=== PATIENT | female | born 1995 | race American Indian/Alaskan Native ===

== ENCOUNTER 2020-03-12 23:03 | Emergency (ER) | payer OTHER ==
[2020-03-12 23:26] VITALS: BP 145/63
[2020-03-13] MEDS ORDERED: ACETAMINOPHEN 500 MG TAB PO ONE (00:32)
--- NOTE | 2020-03-13 01:30 | Ultrasound Report ---
US OB <= 14 weeks fetus INDICATION / CLINICAL INFORMATION: PAIN, BLEEDING. TECHNIQUE: Transabdominal. Patient refused transvaginal examination. COMPARISON: None available. FINDINGS: UTERUS: Appears within normal limits. Endometrial stripe is slightly thickened measuring 2 cm. GESTATIONAL SAC: No gestational sac is visualized. ADNEXA: The ovaries appear within normal limits. No significant abnormality. FREE FLUID: None. ADDITIONAL FINDINGS: None. IMPRESSION: 1. No gestational sac is visualized which would be consistent with miscarriage if provided clinical a ge is correct. No hCG was performed. Correlate clinically. Signer Name: Kodak Cervantes MD Signed: 03/13/2020 1:26 AM Workstation Name: [id number]
--- NOTE | 2020-03-13 01:47 | Emergency Department Report ---
ED HPI - General Chief complaint: Vaginal Bleeding Stated complaint: /BLEEDING Time Seen by Provider: 03/13/20 00:44 Source: patient Mode of arrival: Ambulatory Limitations: No Limitations - History of Present Illness Initial comments: Patient is a 24-year-old F Citizen Of The [place] female who is approximately 9 weeks who is presenting with 4 days of progressively worsening vaginal bleeding. Patient had started using pads today. She has some small clots passed. Patient with some mild crampiness in the suprapubic region. Patient took a test last month which was positive. Last menstrual period was 01/01/2009 20. She denies fevers chills cough cold congestion nausea vomiting. Pain is a 5 out of 10 in severity. - Related Data Allergies Allergy/AdvReac Type Severity Reaction Status Date / Time No Known Allergies Allergy Verified 03/12/20 23:25 ED Review of Systems ROS: Stated complaint: /BLEEDING Other details as noted in HPI Comment: All other systems reviewed and negative ED Past Medical Hx - Past Medical History Previous Medical History?: No - Surgical History Past Surgical History?: No - Social History Smoking Status: Never Smoker Substance Use Type: None ED Physical Exam - General Limitations: No Limitations General appearance: alert, in no apparent distress - Head Head exam: Present: atraumatic, normocephalic - Eye Eye exam: Present: normal appearance - ENT ENT exam: Present: mucous membranes moist - Neck Neck exam: Present: normal inspection - Respiratory Respiratory exam: Present: normal lung sounds bilaterally. Absent: respiratory distress - Cardiovascular Cardiovascular Exam: Present: regular rate, normal rhythm. Absent: systolic murmur, diastolic murmur, rubs, gallop - GI/Abdominal GI/Abdominal exam: Present: soft, normal bowel sounds - Extremities Exam Extremities exam: Present: normal inspection - Back Exam Back exam: Present: normal inspection - Neurological Exam Neurological exam: Present: alert, oriented X3 - Psychiatric Psychiatric exam: Present: normal affect, normal mood - Skin Skin exam: Present: warm, dry, intact, normal color. Absent: rash ED Course Vital Signs 03/12/20 23:23 Temperature 98.2 F Pulse Rate 95 H Respiratory 18 Rate Blood Pressure 145/63 O2 Sat by Pulse 99 Oximetry ED Medical Decision Making - Lab Data Result diagrams: 03/13/20 01:28 03/13/20 01:28 Lab Results 03/13/20 03/13/2003/13/21 Range/Units 01:28 01:28 01:28 WBC 14.1 H (4.5-11.0) K/mm3 RBC 4.00 (3.65-5.03) M/mm3 Hgb 11.3 (10.1-14.3) gm/dl Hct 33.4 (30.3-42.9) % MCV 84 (79-97) fl MCH 28 (28-32) pg MCHC 34 (30-34) % RDW 13.9 (13.2-15.2) % Plt Count 226 (140-440) K/mm3 Lymph % (Auto) 18.8 (13.4-35.0) % [place] % (Auto) 4.9 (0.0-7.3) % Eos % (Auto) 0.9 (0.0-4.3) % Baso % (Auto) 0.6 (0.0-1.8) % Lymph # (Auto) 2.6 (1.2-5.4) K/mm3 [place] # (Auto) 0.7 (0.0-0.8) K/mm3 Eos # (Auto) 0.1 (0.0-0.4) K/mm3 Baso # (Auto) 0.1 (0.0-0.1) K/mm3 Seg Neutrophils % 74.8 H (40.0-70.0) % Seg Neutrophils # 10.6 H (1.8-7.7) K/mm3 Sodium 139 (137-145) mmol/L Potassium 3.9 (3.6-5.0) mmol/L Chloride 100.4 (98-107) mmol/L Carbon Dioxide 24 (22-30) mmol/L Anion Gap 19 mmol/L BUN 8 (7-17) mg/dL Creatinine 0.7 (0.6-1.2) mg/dL Estimated GFR > 60 ml/min BUN/Creatinine Ratio 11 % Glucose 99 (65-100) mg/dL Calcium 9.7 (8.4-10.2) mg/dL Total Bilirubin 0.30 (0.1-1.2) mg/dL AST 14 (5-40) units/L ALT 10 (7-56) units/L Alkaline Phosphatase 48 (35-129) units/L Total Protein 7.8 (6.3-8.2) g/dL Albumin 4.0 (3.9-5) g/dL Albumin/Globulin Ratio 1.1 % HCG, Quant 4353 H (0-4) mIU/mL Blood Type 03/13/20 Range/Units 01:28 WBC (4.5-11.0) K/mm3 RBC (3.65-5.03) M/mm3 Hgb (10.1-14.3) gm/dl Hct (30.3-42.9) % MCV (79-97) fl MCH (28-32) pg MCHC (30-34) % RDW (13.2-15.2) % Plt Count (140-440) K/mm3 Lymph % (Auto) (13.4-35.0) % [place] % (Auto) (0.0-7.3) % Eos % (Auto) (0.0-4.3) % Baso % (Auto) (0.0-1.8) % Lymph # (Auto) (1.2-5.4) K/mm3 [place] # (Auto) (0.0-0.8) K/mm3 Eos # (Auto) (0.0-0.4) K/mm3 Baso # (Auto) (0.0-0.1) K/mm3 Seg Neutrophils % (40.0-70.0) % Seg Neutrophils # (1.8-7.7) K/mm3 Sodium (137-145) mmol/L Potassium (3.6-5.0) mmol/L Chloride (98-107) mmol/L Carbon Dioxide (22-30) mmol/L Anion Gap mmol/L BUN (7-17) mg/dL Creatinine (0.6-1.2) mg/dL Estimated GFR ml/min BUN/Creatinine Ratio % Glucose (65-100) mg/dL Calcium (8.4-10.2) mg/dL Total Bilirubin (0.1-1.2) mg/dL AST (5-40) units/L ALT (7-56) units/L Alkaline Phosphatase (35-129) units/L Total Protein (6.3-8.2) g/dL Albumin (3.9-5) g/dL Albumin/Globulin Ratio % HCG, Quant (0-4) mIU/mL Blood Type A POSITIVE - Radiology Data Ordering Physician: GINA MEJIAS Date of Service: 03/13/20 Procedure(s): US OB <= 14 weeks fetus Accession Number(s): [id number] cc: GINA MEJIAS US OB <= 14 weeks fetus INDICATION / CLINICAL INFORMATION: PAIN, BLEEDING. TECHNIQUE: Transabdominal. Patient refused transvaginal examination. COMPARISON: None available. FINDINGS: UTERUS: Appears within normal limits. Endometrial stripe is slightly thickened measuring 2 cm. GESTATIONAL SAC: No gestational sac is visualized. ADNEXA: The ovaries appear within normal limits. No significant abnormality. FREE FLUID: None. ADDITIONAL FINDINGS: None. IMPRESSION: 1. No gestational sac is visualized which would be consistent with miscarriage if provided clinical age is correct. No hCG was performed. Correlate clinically. Signer Name: Kodak Cervantes MD Signed: 03/13/2020 1:26 AM Workstation Name: [id number] - Medical Decision Making Patient is a 24-year-old F Citizen Of [place] female who is presenting with vaginal bleeding. Patient is approximately 9 weeks per dates. Beta quant was in the 4000 range and there was no IUP found on ultrasound. Is possible that the patient is off on her dates but at this time miscarriage and ectopic cannot be completely ruled out. Patient need to return in 2 to 3 days for repeat beta quant. If the quant is rising and there is still no IUP found is co ncerning for ectopic . With the quant dropping is confirms that the patient miscarried. Critical care attestation.: If time is entered above; I have spent that time in minutes in the direct care of this critically ill patient, excluding procedure time. ED Disposition Clinical Impression: First trimester bleeding Disposition: DC-01 TO HOME OR SELFCARE Is pt being admited?: No Does the pt Need Aspirin: No Condition: Stable Instructions: Vaginal Bleeding During , First Trimester, [id number] Additional Instructions: Your beta quant was 4300 today. Please return in 2 to 3 days for repeat beta quant. If your test is decreasing in that timeframe he confirms that you have miscarried. Elevation of this number without confirmation of IUP at that time would be significant for possible ectopic . Referrals: PRIMARY CARE, [Primary Care Provider] - 3-5 Days Time of Disposition: 03:05
[2020-03-13 01:50] LABS: Basophils # (Auto) 0.1 K/mm3 (0.0-0.1); Basophils % (Auto) 0.6 % (0.0-1.8); Eosinophils # (Auto) 0.1 K/mm3 (0.0-0.4); Eosinophils % (Auto) 0.9 % (0.0-4.3); Hematocrit 33.4 % (30.3-42.9); Hemoglobin 11.3 gm/dl (10.1-14.3); Lymphocytes # (Auto) 2.6 K/mm3 (1.2-5.4); Lymphocytes % (Auto) 18.8 % (13.4-35.0); Mean Corpuscular HGB Conc 34 % (30-34); Mean Corpuscular Volume 84 fl (79-97); Monocytes # (Auto) 0.7 K/mm3 (0.0-0.8); Monocytes % (Auto) 4.9 % (0.0-7.3); Platelet Count 226 K/mm3 (140-440); Red Cell Distribution Width 13.9 % (13.2-15.2)
[2020-03-13 02:40] LABS: Alanine Aminotransferase 10 units/L (7-56); Blood Urea Nitrogen 8 mg/dL (7-17); Calcium 9.7 mg/dL (8.4-10.2); Hemolysis Index 2
[2020-03-13 02:41] LABS: BUN/Creatinine Ratio 11
[2020-03-13 03:09] LABS: Bacteria,Urine 2+ /HPF (Negative); Bilirubin,Urine NEG (Negative); Blood,Urine LG (Negative); Color,Urine Yellow (Yellow); Protein,Urine <15 mg/dL mg/dL (Negative); Urobilinogen,Urine < 2.0 mg/dL (<2.0)
== END 2020-03-13 03:10 | disposition home or self-care (01) ==
LOC: ED 23:03
DX: O20.8 Other hemorrhage in early pregnancy (principal); O26.891 Other specified pregnancy related conditions, first trimester; R10.2 Pelvic and perineal pain; Z3A.09 9 weeks gestation of pregnancy
CPT/HCPCS: 36415; 76801; 80053; 81001; 84702; 85025; 86900; 86901; 87086

== ENCOUNTER 2020-04-19 13:20 | Emergency (ER) | payer OTHER ==
--- NOTE | 2020-04-19 14:12 | Emergency Department Report ---
ED General Adult HPI - General Stated complaint: STD CHECKUP PUI?: No Time Seen by Provider: 04/19/20 14:05 - History of Present Illness Initial comments: Is a pleasant 24-year-old female presents the emergency department chief co mplaint of hematuria and a possible STD exposure. Patient reports has been having occasional lower abdominal pain, she denies any associated fever, chills or night sweats, headache, dizziness, blurry vision, nausea,, diarrhea, chest pain, shortness of breath or any other associated symptoms. She denies any past medical history, current medication use or known allergies to medications. - Related Data Allergies Allergy/AdvReac Type Severity Reaction Status Date / Time No Known Allergies Allergy Verified 03/12/20 23:25 ED Review of Systems ROS: Stated complaint: STD CHECKUP Other details as noted in HPI Comment: All other systems reviewed and negative Constitutional: denies: chills, fever Eyes: denies: eye pain, eye discharge, vision change ENT: denies: ear pain, throat pain Respiratory: denies: cough, shortness of breath, wheezing Cardiovascular: denies: chest pain, palpitations Endocrine: no symptoms reported Gastrointestinal: abdominal pain. denies: nausea, diarrhea Genitourinary: hematuria. denies: urgency, dysuria, discharge Musculoskeletal: denies: back pain, joint swelling, arthralgia Skin: denies: rash, lesions Neurological: denies: headache, weakness, paresthesias Psychiatric: denies: anxiety, depression Hematological/Lymphatic: denies: easy bleeding, easy bruising ED Past Medical Hx - Social History Smoking Status: Never Smoker Substance Use Type: None ED Physical Exam - General General appearance: alert, in no apparent distress - Head Head exam: Present: atraumatic, normocephalic - Eye Eye exam: Present: normal appearance, PERRL, EOMI Pupils: Present: normal accommodation - ENT ENT exam: Present: normal exam, normal orophraynx, mucous membranes moist - Neck Neck exam: Present: normal inspection, full ROM. Absent: tenderness, meningismus - Respiratory Respiratory exam: Present: normal lung sounds bilaterally. Absent: respiratory distress, wheezes, rales, rhonchi, stridor - Cardiovascular Cardiovascular Exam: Present: regular rate, normal rhythm, normal heart sounds. Absent: systolic murmur, diastolic murmur, rubs, gallop - GI/Abdominal GI/Abdominal exam: Present: soft, normal bowel sounds. Absent: distended, tenderness, guarding, rebound, rigid - Extremities Exam Extremities exam: Present: normal inspection, full ROM, normal capillary refill. Absent: tenderness - Back Exam Back exam: Present: normal inspection, full ROM. Absent: tenderness, CVA tenderness (R), CVA tenderness (L) - Neurological Exam Neurological exam: Present: alert, oriented X3, normal gait - Psychiatric Psychiatric exam: Present: normal affect, normal mood - Skin Skin exam: Present: warm, dry, intact, normal color. Absent: rash ED Course Vital Signs 04/19/20 14:28 Temperature 98.7 F Pulse Rate 83 Respiratory 18 Rate Blood Pressure 140/84 O2 Sat by Pulse 100 Oximetry ED Medical Decision Making - Medical Decision Making Patient nontoxic in no acute distress. He was educated that she need to follow- up the health department for proper STD work-up including checking for gonorrhea, chlamydia, trichomonas, hepatitis, herpes simplex, HIV, syphilis and any other possible exposures to STDs. She understood these instructions. I will treat her with Rocephin and azithromycin in the emergency department per the CDC guidelines for possible exposure to gonorrhea chlamydia. She did see her primary care doctor today and they did reportedly test her for STDs. She still persistently wanted to be treated for gonorrhea chlamydia. Recommended she wait 1 week prior to sexual intercourse and any other partners to be treated. She verbalized understand the diagnosis, treatment and follow-up instructions all her questions were answered. - Differential Diagnosis STD, UTI, vaginitis Critical care attestation.: If time is entered above; I have spent that time in minutes in the direct care of this critically ill patient, excluding procedure time. ED Disposition Clinical Impression: Exposure to STD Disposition: DC-01 TO HOME OR SELFCARE Is pt being admited?: No Condition: Stable Instructions: Safe Sex Referrals: PRIMARY CARE, [Referring] - 3-5 Days Time of Disposition: 16:24
[2020-04-19 14:31] VITALS: BP 140/84
[2020-04-19 15:44] LABS: Bilirubin,Urine NEG (Negative); Blood,Urine LG (Negative); Color,Urine Yellow (Yellow); Urobilinogen,Urine < 2.0 mg/dL (<2.0)
[2020-04-19 15:49] LABS: HCG Qualitative,Urine Negative (Negative)
[2020-04-19] MEDS ORDERED: AZITHROMYCIN 250 MG TAB PO ONE (16:24)
[2020-04-19] MEDS ORDERED: LIDOCAINE-MPF (1%) 10 MG/1 ML VIAL 5 ML INFILTRATI ONE (16:24)
== END 2020-04-19 16:56 | disposition home or self-care (01) ==
LOC: ED 13:20
DX: R31.9 Hematuria, unspecified (principal); R10.30 Lower abdominal pain, unspecified; Z20.828 Contact with and (suspected) exposure to other viral communicable diseases
CPT/HCPCS: 81001; 81025; 87086; 96372; 99283; J0696

== ENCOUNTER 2020-12-02 19:31 | Emergency (ER) | payer OTHER ==
[2020-12-02] MEDS ORDERED: ACETAMINOPHEN 500 MG TAB PO ONE (21:06)
[2020-12-02 21:16] LABS: Basophils % (Auto) 0.1 % (0.0-1.8); Eosinophils % (Auto) 0.1 % (0.0-4.3); Hematocrit 35.5 % (30.3-42.9); Hemoglobin 12.1 gm/dl (10.1-14.3); Lymphocytes # (Auto) 1.9 K/mm3 (1.2-5.4); Lymphocytes % (Auto) 11.7 % (13.4-35.0); Mean Corpuscular HGB Conc 34 % (30-34); Mean Corpuscular Volume 84 fl (79-97); Monocytes # (Auto) 0.8 K/mm3 (0.0-0.8); Monocytes % (Auto) 4.7 % (0.0-7.3); Platelet Count 223 K/mm3 (140-440); Red Blood Count 4.23 M/mm3 (3.65-5.03); Red Cell Distribution Width 14.3 % (13.2-15.2)
--- NOTE | 2020-12-02 21:16 | Emergency Department Report ---
ED Female HPI - General Chief complaint: Vaginal Bleeding Stated complaint: 3 MONTHS BLEEDING Source: patient Mode of arrival: Ambulatory Limitations: No Limitations - History of Present Illness Initial comments: Patient is a A2 25-year-old -[place] female who is approximately 12 weeks gestation and who presents to the ED with complaint of acute onset pe rsistent intermittent suprapubic pain with vaginal spotting for the last 12 hours. Patient states that her job entails being on her feet extensively for the rest of the shift and she noticed her pain getting worse 6 hours prior to the end of her shift and when she went to the bathroom she also noticed that she had vaginal spotting. Patient denies nausea, vomiting, dysuria, urinary frequency and urgency, vaginal discharge, dyspareunia, low back pain, fever and chills, shortness of breath, cough or sore throat and diarrhea. MD Complaint: vaginal bleeding, pelvic pain -: Sudden, hour(s) (12) Location: suprapubic, other (vaginal) Radiation: non-radiating Severity: moderate Severity scale (0 -10): 4 Quality: cramping, aching Consistency: constant Improves with: none Worsens with: movement Are you Now?: Yes (Approximately 12 weeks gestation) Associated Symptoms: denies other symptoms, vaginal bleeding, abdominal pain (Suprapubic). denies: vaginal discharge, nausea/vomiting, fever/chills, headaches, loss of appetite, hematuria, rash, seizure, shortness of breath, syncope - Related Data Sexually active: Yes : 2 Para: 0 A: 2 Previous Rx's Medication Instructions Recorded Last Taken Type Acetaminophen [Tylenol] 500 mg PO Q6HR PRN #30 tablet 12/03/20 Unknown Rx cephALEXin [Keflex] 500 mg PO Q8HR #30 cap 12/03/20 Unknown Rx Allergies Allergy/AdvReac Type Severity Reaction Status Date / Time No Known Allergies Allergy Verified 03/12/20 23:25 ED Review of Systems ROS: Stated complaint: 3 MONTHS BLEEDING Other details as noted in HPI Constitutional: denies: chills, fever Eyes: denies: eye pain, eye discharge, vision change ENT: denies: ear pain, throat pain Respiratory: denies: cough, shortness of breath, wheezing Cardiovascular: denies: chest pain, palpitations Endocrine: no symptoms reported Gastrointestinal: abdominal pain (Suprapubic). denies: nausea, vomiting, diarrhea, hematochezia Genitourinary: abnormal menses (Vaginal spotting). denies: urgency, dysuria, discharge Musculoskeletal: denies: back pain, joint swelling, arthralgia Skin: denies: rash, lesions Neurological: denies: headache, weakness, paresthesias Psychiatric: denies: anxiety, depression Hematological/Lymphatic: denies: easy bleeding, easy bruising ED Past Medical Hx - Social History Smoking Status: Never Smoker Substance Use Type: None - Medications Home Medications: Home Medications Medication Instructions Recorded Confirmed Last Taken Type Acetaminophen [Tylenol] 500 mg PO Q6HR PRN #30 tablet 12/03/20 Unknown Rx cephALEXin [Keflex] 500 mg PO Q8HR #30 cap 12/03/20 Unknown Rx ED Physical Exam - General Limitations: No Limitations General appearance: alert, in no apparent distress - Head Head exam: Present: atraumatic, normocephalic, normal inspection - Eye Eye exam: Present: normal appearance, PERRL, EOMI Pupils: Present: normal accommodation - ENT ENT exam: Present: normal exam, normal orophraynx, mucous membranes moist, TM's normal bilaterally, normal external ear exam - Neck Neck exam: Present: normal inspection, full ROM - Respiratory Respiratory exam: Present: normal lung sounds bilaterally. Absent: respiratory distress, wheezes, rales, rhonchi, chest wall tenderness, accessory muscle use, decreased breath sounds, prolonged expiratory - Cardiovascular Cardiovascular Exam: Present: regular rate, normal rhythm, normal heart sounds. Absent: systolic murmur, diastolic murmur, rubs, gallop - GI/Abdominal GI/Abdominal exam: Present: soft, tenderness (Palpable mild suprapubic tenderness), normal bowel sounds. Absent: guarding, rebound, hyperactive bowel sounds, hypoactive bowel sounds, organomegaly, bruit - Extremities Exam Extremities exam: Present: normal inspection, full ROM, normal capillary refill - Back Exam Back exam: Present: normal inspection, full ROM. Absent: tenderness, CVA tenderness (R), muscle spasm, paraspinal tenderness, vertebral tenderness - Neurological Exam Neurological exam: Present: alert, oriented X3, CN II-XII intact, normal gait, reflexes normal - Psychiatric Psychiatric exam: Present: normal affect, normal mood - Skin Skin exam: Present: warm, dry, intact, normal color. Absent: rash ED Course Vital Signs 12/02/20 20:03 Temperature 99.4 F Pulse Rate 84 Respiratory 16 Rate Blood Pressure 121/71 [Left] O2 Sat by Pulse 100 Oximetry ED Medical Decision Making - Lab Data Result diagrams: 12/02/20 20:27 12/02/20 20:27 - Radiology Data Radiology results: report reviewed, image reviewed [facility], [place] [address] [place] [address] Ultrasound Report Signed Patient: MYRON PHIPPS MR#: [id number] : 1995 Acct:[id number] Age/Sex: 25 / F ADM Date: 12/02/20 Loc: ED Attending Dr: Ordering Physician: GINA MEJIAS Date of Service: 12/02/20 Procedure(s): US OB transvaginal Accession Number(s): [id number] cc: GINA MEJIAS EARLY OBSTETRICAL ULTRASOUND INDICATION: Vaginal bleeding, 12 weeks gestation COMPARISON: None pertinent available TECHNIQUE: Transabdominal and endovaginal FINDINGS: Uterus measures 14.3 cm in length. Early twin intrauterine is seen with cardiac activity documented at 170 bpm and 171 bpm. Fetus A estimated gestational age by crown-rump length is 12 weeks 6 days and fetus B estimated gestational age by crown-rump length is 13 weeks 2 days. No obvious abnormalities are seen. Left ovary is not visualized. Right ovary measures 3.4 cm in length and shows no abnormalities. No free fluid is seen. IMPRESSION: Normal-appearing early twin intrauterine Signer Name: Jonnie Bronson MD Signed: 12/02/2020 10:45 PM Workstation Name: [id number] Transcribed By: SOTERO Dictated By: Jonnie Bronson MD Electronically Authenticated By: Jonnie Bronson MD Signed Date/Time: 12/02/202244 DD/ 38 TD/TT: - Medical Decision Making This is a A2 25-year-old -[place] female who is approximately 12 weeks gestation and who presents to the ED with complaint of acute onset persistent intermittent suprapubic pain with vaginal spotting for the last 12 hours. Patient states that her job entails being on her feet extensively for the rest of the shift and she noticed her pain getting worse 6 hours prior to the end of her shift and when she went to the bathroom she also noticed that she had vaginal spotting. In the ED, patient is alert and oriented x3 and is not in any distress. Patient is hemodynamically stable. Patient was treated for pain with Tylenol 1 g p.o. x1. Lab test results were reviewed and showed acute leukocytosis of 15,800 and hCG quant of 62,398 and urinalysis showed significant urinary tract infection. Patient was also treated in the ED with initial oral antibiotics Keflex 1 g p.o. x1. Pelvic and transvaginal ultrasound showed early twin intrauterine is seen with cardiac activity documented at 170 bpm and 171 bpm. Fetus A estimated gestational age by crown-rump length is 12 weeks 6 days and fetus B estimated gestational age by crown-rump length is 13 weeks 2 days. No obvious abnormalities are seen. On reevaluation, patient's pain is well controlled medications. Patient will discharge home on prescription of oral antibiotics and advised to take Tylenol as needed for pain and to follow-up with her [employer] [employer] physician as previously scheduled in 5 to 7 days for reevalua tion. Patient was advised return to the ED immediately if symptoms get worse. - Differential Diagnosis Threatened miscarriage; UTI; ovarian cyst; subchorionic bleed; Critical care attestation.: If time is entered above; I have spent that time in minutes in the direct care of this critically ill patient, excluding procedure time. ED Disposition Clinical Impression: Threatened miscarriage, Vaginal bleeding in patient after first trimester, Abdominal pain during in first trimester, Acute urinary tract infection Disposition: 01 HOME / SELF CARE / HOMELESS Is pt being admited?: No Does the pt Need Aspirin: No Condition: Stable Instructions: Threatened Miscarriage, [id number], Vaginal Bleeding During , Second Trimester, [id number], Urinary Tract Infection, Adult, [id number], Abdominal Pain, Adult, [id number] Additional Instructions: The transvaginal ultrasound showed Early twin intrauterine is seen with cardiac activity documented at 170 bpm and 171 bpm. Fetus A estimated gestational age by crown-rump length is 12 weeks 6 days and fetus B estimated gestational age by crown-rump length is 13 weeks 2 days. No obvious abnormalities are seen. All lab test results were reviewed and showed acute l eukocytosis of 15,800 and significant urinary tract infection. Therefore take medication as advised, drink plenty of fluids and follow-up with your [facility] [employer] physician in 5 to 7 days for reevaluation. Return to the ED immediately if symptoms get worse. Prescriptions: Acetaminophen [Tylenol] 500 mg PO Q6HR PRN #30 tablet PRN Reason: Pain , Severe (7-10) cephALEXin [Keflex] 500 mg PO Q8HR #30 cap Referrals: SHANITA HERNÁNDEZ MD [Staff Physician] - 3-5 Days Forms: Work/School Release Form(ED) Time of Disposition: 02:01 Print Language: AMERICAN
[2020-12-02 21:38] LABS: Alanine Aminotransferase 50 units/L (7-56); Albumin 4.2 g/dL (3.9-5); Blood Urea Nitrogen 4 mg/dL (7-17); Calcium 10.1 mg/dL (8.4-10.2); Hemolysis Index 0
[2020-12-02 21:39] LABS: BUN/Creatinine Ratio 8
[2020-12-03 01:19] LABS: Bilirubin,Urine NEG (Negative); Blood,Urine MOD (Negative); Color,Urine Yellow (Yellow); Mucus,Urine FEW /HPF; Urobilinogen,Urine < 2.0 mg/dL (<2.0)
[2020-12-03 01:20] LABS: WBC,Urine > 182.0 /HPF (0.0-6.0)
[2020-12-03] MEDS ORDERED: cephALEXin 500 MG CAP PO ONE (01:56)
[2020-12-03 02:40] VITALS: BP 126/57
--- NOTE | 2020-12-04 09:38 | Ultrasound Report ---
EARLY OBSTETRICAL ULTRASOUND INDICATION: Vaginal bleeding, 12 weeks gestation COMPARISON: None pertinent available TECHNIQUE: Transabdominal and endovaginal FINDINGS: Uterus measures 14.3 cm in length. Early twin intrauterine is seen with cardiac a ctivity documented at 170 bpm and 171 bpm. Fetus A estimated gestational age by crown-rump length is 12 weeks 6 days and fetus B estimated gestational age by crown-rump length is 13 weeks 2 days. No obv ious abnormalities are seen. Left ovary is not visualized. Right ovary measures 3.4 cm in length and shows no abnormalities. No free fluid is seen. IMPRESSION: Normal-appearing early twin intrauterine Signer Name: Jonnie Bronson MD Signed: 12/02/2020 10:45 PM Workstation Name: [id number]
== END 2020-12-03 02:40 | disposition home or self-care (01) ==
LOC: ED 19:31
DX: O20.0 Threatened abortion (principal); O20.9 Hemorrhage in early pregnancy, unspecified; O26.891 Other specified pregnancy related conditions, first trimester; O23.41 Unspecified infection of urinary tract in pregnancy, first trimester; Z3A.12 12 weeks gestation of pregnancy
CPT/HCPCS: 36415; 76801; 76802; 76817; 80053; 81001; 84702; 85025; 86900; 86901; 99284

== ENCOUNTER 2021-05-16 05:25 | Inpatient (IN) | payer OTHER ==
[2021-05-14 11:42] LABS: Hemoglobin 10.2 gm/dl (10.1-14.3); Mean Corpuscular HGB Conc 34 % (30-34); Mean Corpuscular Volume 80 fl (79-97); Platelet Count 197 K/mm3 (140-440); Red Blood Count 3.74 M/mm3 (3.65-5.03); Red Cell Distribution Width 14.3 % (13.2-15.2)
[2021-05-14 12:03] LABS: Blood Urea Nitrogen 5 mg/dL (7-17); Calcium 9.6 mg/dL (8.4-10.2); Hemolysis Index 0
[2021-05-14 12:24] LABS: BUN/Creatinine Ratio 8
--- NOTE | 2021-05-14 19:16 | History and Physical Report ---
History of Present Illness Date of examination: 05/14/21 History of present illness: Patient admitted for section. Patient has been complicated by twin gestation and history of intrauterine growth restriction, gestational diabetes and female twin and with what appears to be a remote hemorrhage of ce rebellum. Menstrual History Regularity: regular Menses every: 28 days Duration: 5 LMP: 08/29/2020 LMP reliability: definite LMP character: normal test type: urine test Date: 12/20/2020 BC at conception: none Planned ? no EDC Confirmation: 06/05/2021 Past History : 3 Term Births: 0 Premature Births: 0 Living Children: 0 Para: 0 Mult. Births: 0 Prev : 0 Prev. attempt? 0 Aborta: 2 Elect. Ab: 1 Spont. Ab: 1 # 1 Weeks Gestation: 4 Delivery type: EAB # 2 Weeks Gestation: 8 Delivery type: SAB Comments: no d&C Past Medical History: Negative Past Medical History Past Surgical History: D&C: EAB Family History Summary: First Degree Blood Relative - Has No Known Family History - Entered On: 12/20/2020 General Comments - FH: denies [facility] no known family hx cancer Social History: Patient is single no hx abuse/neglect or DV No ETOH/Drugs/Smoking No pets Smoking History: Patient has never smoked. 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 Infection History Hx of STD: unsure HIV Risk Eval: no Hepatitis B Risk Eval: low risk Personal hx. of genital herpes: no Partner hx. of genital herpes: no Rash, Viral, or Febrile illness since last LMP? no Varicella/Chicken Pox Status: Immunized Genetic History Congenital Heart Defect: Mom: no Dad: no Jadon Disease: Mom: no Dad: no Thalassemia Mom: no Dad: no Neural Tube Defect Mom: no Dad: no Down's Syndrome Mom: no Dad: no Martinez-Sachs Mom: no Dad: no Sickle Cell Disease/Trait Mom: no Dad: no Hemophilia Mom: no Dad: no Muscular Dystrophy Mom: no Dad: no Cystic Fibrosis Mom: no Dad: no [place] Chorea Mom: no Dad: no Mental Retardation Mom: no Dad: no Fragile X Mom: no Dad: no Other Genetic/Chromosomal Disorder Mom: no Dad: no Child w/other defect Mom: no Dad: no Enviromental Exposures Xray Exposure: no Medication, drug, or alcohol use since LMP: no Chemical/Other Exposure: no Exposure to Cat Liter: no Hx of Parvovirus (Fifth Disease): no Current Allergies (reviewed today): No known allergie Past History Past Medical History: other (See HPI) Past Surgical History: D&C, other (See HPI) 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 (See HPI) Family/Genetic History: other (See HPI) Social history: full code, other (See HPI) - Obstetrical History Expected Date of Delivery: 06/05/21 Actual Gestation: 37 Week(s) 2 Day(s) : 3 Para: 0 Hx # Term Pregnancies: 0 Number of Pregnancies: 0 Spontaneous Abortions: 1 Induced : 1 Number of Living Children: 0 Medications and Allergies Allergies Allergy/AdvReac Type Severity Reaction Status Date / Time No Known Allergies Allergy Verified 05/10/21 16:46 Home Medications Medication Instructions Recorded Confirmed Last Taken Type Ferrous Sulfate [Feosol 325 MG tab] 325 mg PO BID #60 tablet 05/16/21 Unknown Rx Ibuprofen [Motrin] 800 mg PO TID PRN #30 tablet 05/16/21 Unknown Rx Lidocain2.5%/Prilocai2.5% [Emla] 5 gm TP ONCE #1 tube 05/16/21 Unknown Rx oxyCODONE /ACETAMINOPHEN [Percocet 1 tab PO Q6HR PRN #20 tablet 05/16/21 Unknown Rx 5/325 mg] Active Meds: Active Medications Citric Acid/Sodium Citrate (Bicitra Oral Liqd 30ml) 30 ml PO ONCE NR Stop: 05/16/21 16:00 Famotidine (Famotidine 20 Mg/2 Ml Inj) 20 mg IV ONCE NR Stop: 05/16/21 20:00 Lactated Ringer's (Lactated Ringers) 1,000 mls @ 2,250 mls/hr IV PREOP HERMELINDO Stop: 05/17/21 10:27 Oxytocin/Sodium Chloride (Pitocin/Ns 30 Unit/500ml) 30 units in 500 mls @ 0 mls/hr IV TITR HERMELINDO Cefazolin Sodium 3 gm/ Sodium (Chloride) 100 mls @ 100 mls/30 min IV PREOP NR; Protocol Stop: 05/16/21 20:00 Metoclopramide HCl (Metoclopramide 10 Mg/2 Ml Inj) 10 mg IV ONCE NR Stop: 05/16/21 20:00 Review of Systems Constitutional: other (See HPI) - Vital Signs Vital signs: Vital Signs Temp Pulse Resp BP Pulse Ox 98.3 F 103 H 20 128/74 99 05/14/21 11:30 05/14/21 11:30 05/14/21 11:30 05/14/21 11:30 05/14/21 11:30 Temp Pulse Resp BP Pulse Ox 98.3 F 103 H 20 128/74 99 05/14/21 11:30 05/14/21 11:30 05/14/21 11:30 05/14/21 11:30 05/14/21 11:30 - Physical Exam Breasts: Positive: deferred Cardiovascular: Regular rate Lungs: Positive: Normal air movement Abdomen: Positive: soft Genitourinary (Female): Positive: normal external genitalia Vagina: Positive: normal moisture Uterus: Positive: enlarged - Obstetrical Uterine Contraction Pattern: Absent Results Result Diagrams: 05/16/21 19:53 05/14/21 06:00 Abnormal lab results 05/14/21 05/14/21 Range/Units 06:00 11:41 WBC 12.7 H (4.5-11.0) K/mm3 Hct 30.0 L (30.3-42.9) % MCH 27 L (28-32) pg Sodium 136 L (137-145) mmol/L Carbon Dioxide 18 L (22-30) mmol/L BUN 5 L (7-17) mg/dL Glucose 135 H (65-100) mg/dL All other labs normal. Assessment and Plan - Patient Problems (1) Maternal care for other specified problems, third trimester, fetus 2 Current Visit: No Status: Acute Plan to address problem: MRI showed probably hemorrhage in the past. NICU aware of plan for evaluation after .. Questions answered. Indications for and description of the procedure given. Questions answered. Patient agrees to proceed with section Discuss the risks of the surgery including infection, bleeding possibly heavy enough to require a blood transfusion, possible damage to bowel, bladder or ureter. Her questions were answered. Patient understands and desires to proceed (2) Twin , dichorionic/diamniotic, third trimester Current Visit: No Status: Acute (3) Gestational diabetes mellitus in , unspecified control Current Visit: No Status: Acute Qualifiers: Gestational diabetes mellitus control: unspecified Trimester: third trimester Qualified Code(s): O24.419 - Gestational diabetes mellitus in , unspecified control (4) BMI greater than 40 Current Visit: No Status: Acute (5) Sickle cell trait in mother affecting Current Visit: No Status: Acute (6) Intrauterine growth restriction (IUGR) affecting care of mother Current Visit: Yes Status: Acute Qualifiers: Fetus number: single or unspecified fetus Trimester: third trimester Qualified Code(s): O36.5930 - Maternal care for other known or suspected poor growth, third trimester, not applicable or unspecified
[2021-05-16] MEDS ORDERED: LACTATED RINGERS 1,000 ML ONE ×3 (06:20→16:26)
--- NOTE | 2021-05-16 06:43 | Anesthesia Consultation ---
Anesthesia Consult and Med Hx Date of service: 05/16/21 - Airway Anesthetic Teeth Evaluation: Good ROM Head & Neck: Adequate Mental/Hyoid Distance: Adequate Mallampati Class: Class II Intubation Access Assessment: Probably Good - Pulmonary Exam CTA: Yes - Cardiac Exam Cardiac Exam: RRR - Pre-Operative Health Status ASA Pre-Surgery Classification: ASA3 Proposed Anesthetic Plan: Spinal - Pulmonary Hx Asthma: No - Cardiovascular System Hx Hypertension: No - Central Nervous System Hx Seizures: No Hx Psychiatric Problems: No - Endocrine Hx Renal Disease: No Hx Non-Insulin Dependent Diabetes: Yes Hx Hypothyroidism: No Hx Hyperthyroidism: No - Hematic Hx Anemia: No Hx Sickle Cell Disease: No - Other Systems Hx Alcohol Use: No Hx Cancer: No Hx Obesity: Yes
--- NOTE | 2021-05-16 06:43 | Anesthesia Day of Surgery ---
Anesthesia Day of Surgery - Day of Surgery Patient Examined: Yes Patient H&P Reviewed: Yes Patient is NPO: Yes
[2021-05-16] MEDS ORDERED: BICITRA ORAL LIQD 30ML PO NR (07:00)
[2021-05-16] MEDS ORDERED: METOCLOPRAMIDE 10 MG/2 ML INJ IV NR (07:00)
[2021-05-16] MEDS ORDERED: FAMOTIDINE 20 MG/2 ML INJ IV NR (07:00)
[2021-05-16] MEDS ORDERED: SODIUM CHLORIDE 0.9% IRR 1,500 ML BOTTLE IR ONE (07:51)
[2021-05-16] MEDS ORDERED: ceFAZolin/STERILE WATER 2 GM/20 ML SYRINGE IV ONE (07:51)
[2021-05-16] MEDS ORDERED: WATER FOR IRRIG STERILE 1,500 ML BOTTLE IR ONE (07:51)
--- NOTE | 2021-05-16 07:57 | Progress Note ---
Spinal Anesthesia Block - Spinal Anesthesia Block Start Time: 07:46 Stop Time: 07:54 Performed by:: ROGER NO Procedure: Sitting, sterile Chloraprep prep/drape, 1% lidocaine 3ml skin local, 25G spinal needle + introducer at L3-4, + CSF, - Heme, [1.9 ml 0.5% bupivacaine + 10 mcg dexmedetomidine] injected, drape removed, patient positioned supine with left uterine displacement, and spinal level verified to be adequate prior to surgery. Zack SRNA
[2021-05-16] MEDS ORDERED: OXYTOCIN DRIP 30 UNITS/500 ML BAG IV SCH ×2 (08:00→11:00)
[2021-05-16] MEDS ORDERED: ceFAZolin 1 GM VIAL ONE (08:09)
[2021-05-16] MEDS ORDERED: ONDANSETRON 4 MG/2 ML INJ ONE (08:10)
[2021-05-16] MEDS ORDERED: KETOROLAC 30 MG/1 ML INJ ONE (08:10)
[2021-05-16] MEDS ORDERED: dexAMETHasone 20 MG/5 ML VIAL ONE (08:10)
[2021-05-16] MEDS ORDERED: PHENYLEPHRINE/NS 1,000 MCG/10 ML SYRINGE (OR USE) IV ONE (08:10)
[2021-05-16] MEDS ORDERED: BUPIVACAINE/PF (0.5%) 5 MG/1 ML 30 ML VIAL INFILTRATI ONE (08:10)
--- NOTE | 2021-05-16 09:31 | Operative Report ---
Operative Report Operative Report: Date of procedure: May 16, 2021 Pre-operative diagnosis: Intrauterine at 37 weeks with twin gestation, gestational diabetes, intrauterine growth restriction and remote hemorrhage of cerebellum baby B female Post-operative diagnosis: Same Procedure name(s): Primary low transverse section Surgeon: Michele Luevano MD Carpet Cleaning Technician: Anesthesia: Spinal EBL: Complications: None Findings: Normal uterus tubes and ovaries, female infant was delivered in breech position nose weight 5 pounds 13 ounces Apgars 8 at 1 minute and 9 at 5 minutes. Male infant delivered second with weight 5 pounds 4 ounces Apgars 8 at 1 minute and 9 at 5 minutes Specimen(s): Procedure: The patient was brought to the operating room. A spinal was placed without any complications. She was then placed in left lateral tilt. Prepped and draped in the usual sterile manner. After testing for adequate anesthesia level, a Pfannenstiel incision was made. This incision was taken down to the fascia. The fascia was then nicked in the midline. This incision was extended out laterally with Manuel scissors. The fascia was then sharply and bluntly from the underlying rectus muscles. The rectus muscles were bluntly and sharply . The peritoneum was then entered with the ending machine operator's fingers. This incision was spread vertically with care not to damage the bladder below. Marcos retractor was in place. The bladder flap was then formed sharply and bluntly with Metzenbaum scissors. A transverse incision was made in lower uterine segment. This incision was extended laterally with the operators fingers. The amniotic sac was then entered bluntly with the ending machine operator's fingers. This appears to be the amniotic sac of of the higher position twin. Due to the presence of the low amniotic sac this infant was turned to footling breech. The was delivered by grasping each of the feet and pulling him through the incision followed by raising the breech then sweeping flexing and extending the upper extremities and after coming head was then delivered safely. The was bulb suctioned on the mother's abdomen. Cord was double clamped and cut. Remarkable the cord clamped. The was then passed to the nursery personnel who were in attendance. The above scores were given by the nursery personnel. Next the amniotic sac of the second twin was then entered again revealing clear fluid. This was delivered from the vertex position. The was bulb suctioned on the mother's abdomen. Cord double clamped and cut. An infant was passed to the nursery personnel who signed the above-stated score. The placenta was then bluntly removed. The uterus was then externalized and wiped clean the remaining products. The uterine incision was closed in layers. The first incision was closed in a locking manner using 0 Vicryl. This was followed by imbricating stitch also with 0 Vicryl. This closure was hemostatic and additional [id number] suture. The bladder flap was copiously irrigated and found to be hemostatic. The pelvis was copiously irrigated and found to be hemostatic. The uterus was then placed back to the patient's abdomen. The retractors were removed. The rectus muscles were inspected and found to be hemostatic. The fascia was then closed in a running manner using 0 Vicryl. This incision was hemostatic irrigation Bovie. The skin was reapproximated with 4-0 Vicryl subcuticularly. The patient tolerated procedure well. Her urine was clear. Both infants were admitted to the well baby nursery. The patient tolerated procedure well and was accompanied to recovery room in good condition. Instrument count correct x3
[2021-05-16] MEDS ORDERED: LACTATED RINGERS 1,000 ML IV SCH (10:00)
[2021-05-16] MEDS ORDERED: DEXTROSE 50% IN WATER (25GM) 50 ML SYRINGE IV PRN (10:13)
[2021-05-16] MEDS ORDERED: WITCH HAZEL/ GLYCERIN PAD TP PRN (11:00)
[2021-05-16] MEDS ORDERED: ONDANSETRON 4 MG/2 ML INJ IV PRN (11:00)
[2021-05-16] MEDS ORDERED: NALOXONE 0.4 MG/1 ML INJ IV PRN (11:00)
[2021-05-16] MEDS ORDERED: SIMETHICONE 80 MG CHEW TAB PO PRN (11:00)
[2021-05-16] MEDS ORDERED: DEXTROSE 10% *Hypoglycemia IV PRN (11:00)
[2021-05-16] MEDS ORDERED: LANOLIN/ZINC/DIMETHICONE (LANSINOH) 7 GM TP PRN (11:00)
[2021-05-16] MEDS ORDERED: SODIUM CHLORIDE 0.45% 1000 ML 1,000 ML IV SCH (11:00)
[2021-05-16] MEDS: ceFAZolin/NS 1 GM/50 ML 1 GM/50 ML BAG IV SCH (16:48)
[2021-05-16] MEDS: oxyCODONE /ACETAMINOPHEN 5-325MG TAB PO PRN ×2 (16:54→23:49)
[2021-05-16 20:17] LABS: Hematocrit 31.8 % (30.3-42.9); Hemoglobin 10.3 gm/dl (10.1-14.3)
[2021-05-16] MEDS: KETOROLAC 30 MG/1 ML INJ IV SCH (21:43)
[2021-05-16] MEDS ORDERED: MAGNESIUM HYDROXIDE (MOM) ORAL LIQD UDC PO PRN (22:00)
[2021-05-16] MEDS: INSULIN REGULAR, HUMAN 100 UNITS/1 ML SUB-Q SCH (23:59)
[2021-05-17] MEDS: ceFAZolin/NS 1 GM/50 ML 1 GM/50 ML BAG IV SCH (00:58)
[2021-05-17] MEDS: KETOROLAC 30 MG/1 ML INJ IV SCH (04:15)
[2021-05-17] MEDS: INSULIN REGULAR, HUMAN 100 UNITS/1 ML SUB-Q SCH (05:54)
--- NOTE | 2021-05-17 08:58 | Progress Note ---
Assessment and Plan Pt reports ambulating, voiding, and eating without difficulties. POC d/w pt for continued postoperative pathway and discharge home tomorrow if continues stable. Precautions given. Follow up advised in one week. Pt verbalizes understanding. - Patient Problems (1) Gestational diabetes mellitus (GDM), delivered Current Visit: Yes Status: Acute (2) Delivery by (planned) section occurring after 37 completed weeks of gestation but before 39 completed weeks gestation due to (spontaneous) onset of labor, with or without mention of antepartum condition Current Visit: Yes Status: Acute (3) BMI greater than 40 Current Visit: No Status: Acute (4) Sickle cell trait in mother affecting Current Visit: No Status: Acute Subjective - Subjective Date of service: 05/17/21 Principal diagnosis: POD#1 s/p Delivery Patient reports: appetite normal, voiding normally, pain well controlled, flatus, ambulating normally : doing well, bottle feeding Objective - Vital Signs Latest vital signs: Vital Signs Temp Pulse Resp BP BP Pulse Ox Pulse Ox 05/17/21 08:09 98.7 F 89 18 123/66 100 05/17/21 04:53 98.4 F 81 20 107/76 100 05/17/21 04:15 18 05/17/21 01:03 99.2 F 87 20 133/85 98 05/16/21 23:49 18 05/16/21 21:43 18 05/16/21 20:37 97.2 F L 79 20 126/78 99 05/16/21 20:00 99 05/16/21 16:22 98.5 F 66 18 126/80 100 05/16/21 11:50 98.3 F 78 18 127/58 97 05/16/21 11:44 97 05/16/21 10:00 97.6 F 83 12 148/79 99 05/16/21 09:45 76 17 145/77 97 05/16/21 09:30 78 15 129/79 99 05/16/21 09:25 72 13 133/66 100 05/16/21 09:20 79 17 131/53 99 05/16/21 09:15 97.6 F 84 14 120/59 98 Intake and Output 05/16/21 05/17/21 05/17/21 23:59 07:59 15:59 Intake Total 1368 480 240 Output Total 3800 Balance -2432 480 240 Intake: IV 50 ANCEF/NS 1 GM/50 ML 1 gm 50 In 50 ml @ 100 mls/hr IV Q8H [facility] Rx#:[id number] Oral 718 480 240 Intake, Free Water 600 Output: Urine 3800 Indwelling Catheter 2800 Uretheral ([place]) 900 Void 100 Other: Total, Intake Amount 118 240 240 Total, Output Amount 100 # Voids Void 1 - Exam Breasts: Present: normal Cardiovascular: Present: Regular rate Lungs: Present: Normal air movement Abdomen: Present: normal appearance, soft. Absent: distention Uterus: Present: normal, firm Extremities: Present: normal Incision: Present: normal, dry, intact - Labs Labs: Abnormal lab results 05/16/21 05/16/21 05/16/21 Range/Units 11:25 17:48 23:40 POC Glucose 111 H 129 H 113 H (70-105) mg/dL 05/17/21 Range/Units 05:52 POC Glucose 111 H (70-105) mg/dL
[2021-05-17] MEDS ORDERED: TETANUS,DIPH,PERTUSS(ACELL) VACCINE 0.5 ML SYRINGE IM ONE (10:00)
[2021-05-17] MEDS: FERROUS SULFATE 325 MG TAB PO SCH (10:29)
[2021-05-17] MEDS: PRENATAL VIT27-FE FUMARATE-FOLIC ACID VIT TAB PO SCH (10:30)
[2021-05-17] MEDS: IBUPROFEN 600 MG TAB PO PRN ×2 (10:30→16:17)
[2021-05-17] MEDS: oxyCODONE /ACETAMINOPHEN 5-325MG TAB PO PRN ×2 (10:31→22:15)
--- NOTE | 2021-05-17 10:54 | Post Anesthesia Evaluation ---
- Post Anesthesia Evaluation Patient Participated: Yes Airway Patent: Yes Stable Respiratory Function: Yes Nausea/Vomiting: No Temp > 96.8F: Yes Pain Manageable: Yes Adequeate Hydration: Yes Anesthesia Complications: No Block Receding Appropriately: Yes
[2021-05-17] MEDS ORDERED: MEASLES, MUMPS & RUBELLA 12,500 UNIT/0.5 ML VACCINE SUB-Q ONE (11:00)
[2021-05-18] MEDS: IBUPROFEN 600 MG TAB PO PRN
[2021-05-18] MEDS: oxyCODONE /ACETAMINOPHEN 5-325MG TAB PO PRN ×2 (05:53→11:57)
[2021-05-18] MEDS: FERROUS SULFATE 325 MG TAB PO SCH (09:45)
[2021-05-18] MEDS: PRENATAL VIT27-FE FUMARATE-FOLIC ACID VIT TAB PO SCH (09:45)
--- NOTE | 2021-05-18 13:06 | Discharge Summary ---
Providers - Providers Date of Admission: 05/16/21 05:25 Date of discharge: 05/18/21 (pt desires discharge home) Attending physician: ELYSIA BURGOS 05/16/21 10:13 Consult to Plate Driller [CONS] Routine Reason For Exam: 05/17/21 20:00 Consult to Case Management [CONS] Routine Services Needed at Discharge: Special Investigator Notified:: yes; to be completed prior to discharge Additional Physician Instructions: Was informed that pt is homeless. Primary care physician: LAWN MOWER Hospitalization Reason for admission: section, IUP at term Delivery: Procedure: section, primary low transverse Episiotomy: none Laceration: none Incision: normal, dry, intact Other procedures: none complications: none Discharge diagnosis: IUP at term delivered [place] baby: twins Condition at discharge: Good Disposition: 01 HOME / SELF CARE / HOMELESS - Discharge Diagnoses (1) Gestational diabetes mellitus (GDM), delivered Status: Acute (2) Delivery by (planned) section occurring after 37 completed weeks of gestation but before 39 completed weeks gestation due to (spontaneous) onset of labor, with or without mention of antepartum condition Status: Acute (3) BMI greater than 40 Status: Acute (4) Sickle cell trait in mother affecting Status: Acute Plan - Discharge Medications Prescriptions: Lidocain2.5%/Prilocai2.5% [Emla] 5 gm TP ONCE #1 tube Ferrous Sulfate [Feosol 325 MG tab] 325 mg PO BID #60 tablet Ibuprofen [Motrin] 800 mg PO TID PRN #30 tablet PRN Reason: Pain oxyCODONE /ACETAMINOPHEN [Percocet 5/325 mg] 1 tab PO Q6HR PRN #20 tablet PRN Reason: Pain - Provider Discharge Summary Activity: routine, no sex for 6 weeks, no heavy lifting 4 weeks, no strenuous exercise Diet: routine Instructions: routine Additional instructions: [] Smoking cessation referral if applicable(refer to patient education folder for contact #) [] Refer to [facility] Booklet Call your doctor immediately for: * Fever > 100.5 * Heavy vaginal bleeding ( >1 pad per hour) * Severe persistent headache * Shortness of breath * Reddened, hot, painful area to leg or breast * Drainage or odor from incision. * Keep incision clean and dry at all times and follow doctor's instructions regarding bathing/showering Congratulations! Please call [phone] and schedule your follow up visit in 1 week. Please also schedule your elective circumcision for your if desired. Bring your prescription to your circumcision appointment. Do not apply the cream before the procedure. Thank you! - Follow up plan Follow up: PRIMARY CARE, [Primary Care Provider] - 7 Days
[2021-05-18 14:58] VITALS: BP 139/87
== END 2021-05-18 15:10 | disposition home or self-care (01) | DRG 765 ==
LOC: APU 05:25 → OB 10:59
PROVIDERS: ADMIT Obstetrics & Gynecology; ATTEND Obstetrics & Gynecology
PROC: 10D00Z1 Extraction of Products of Conception, Low, Open Approach (ICD-10-PCS; principal; 2021-05-16)
PROC: 3E0234Z Introduction of Serum, Toxoid and Vaccine into Muscle, Percutaneous Approach (ICD-10-PCS; 2021-05-17)
DX: O36.5932 Maternal care for other known or suspected poor fetal growth, third trimester, fetus 2 (principal); O30.043 Twin pregnancy, dichorionic/diamniotic, third trimester; O24.429 Gestational diabetes mellitus in childbirth, unspecified control; O99.02 Anemia complicating childbirth; D57.3 Sickle-cell trait; Z20.822 Contact with and (suspected) exposure to COVID-19; Z3A.37 37 weeks gestation of pregnancy; Z37.2 Twins, both liveborn; Z23 Encounter for immunization
CPT/HCPCS: 36415; 80048; 82962; 85014; 85018; 85027; 86592; 86850; 86900; 86901; 88307; 99211; G0378; J3490; J7121; G0463; J0690; J1100; J1885; J2370; J2405; J2590; J2765; J7120; U0003